=== PATIENT | male | born 1960 | race Caucasian/White ===

== ENCOUNTER 2017-03-13 11:08 | Emergency (ER) | payer OTHER ==
[2017-03-13 11:16] VITALS: PULSE 59
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
[2017-03-13] MEDS ORDERED: CEPHALEXIN 500 MG CAP PO ONE (11:50)
[2017-03-13 13:39] VITALS: BP 122/76; RESP 16; TEMP 98.2; O2SAT 96
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
== END 2017-03-13 13:40 | disposition home or self-care (01) ==
PROC: 0HQKXZZ Repair Right Lower Leg Skin, External Approach (ICD-10-PCS; principal; 2017-03-13)
DX: S81.811A Laceration without foreign body, right lower leg, initial encounter (principal); V17.0XXA Pedal cycle driver injured in collision with fixed or stationary object in nontraffic accident, initial encounter; Y92.828 Other wilderness area as the place of occurrence of the external cause; Y99.8 Other external cause status; Y93.55 Activity, bike riding